=== PATIENT | female | born 1950 | race Two or more races ===

== ENCOUNTER 2023-06-08 12:23 | Emergency (ER) | payer OTHER, BC ==
[~2023-06-08] VITALS: Ht 157.5 cm; Wt 77.1 kg
[2023-06-08] MEDS ORDERED: TOPROL XL50 M1 (13:33)
[2023-06-08] MEDS ORDERED: AZOR 5-20 MG T1 EACH (13:33)
[2023-06-08] MEDS ORDERED: ZESTRIL20 MG (13:33)
[2023-06-08 16:48] LABS: HEMATOCRIT 42.5 % (36.0-45.00); HEMOGLOBIN 14.4 g/dL (12.0-15.00); MEAN CELL VOLUME 93.3 fL (80.00-100.00); MEAN CORPUSCULAR HEMOGLOBIN 31.7 pg (27.00-32.0); PLATELET COUNT 206 K/uL (150-450); RED BLOOD COUNT 4.56 M/uL (4.00-6.00); RED CELL DISTRIBUTION WIDTH 12.9 % (11.5-14.5)
[2023-06-08 16:49] LABS: URINE APPEARANCE Clear; URINE BILIRRUBIN Negative (NEGATIVE); URINE BLOOD Trace; URINE COLOR Yellow; URINE GLUCOSE Negative (NEGATIVE); URINE LEUKOCYTE Negative; URINE NITRATE Negative; URINE PROTEIN Negative (NEGATIVE); URINE UROBILINOGEN 0.2 E.U./dl
[2023-06-08 16:53] LABS: URINE BACTERIA 171.3 uL (0.0-1933); URINE EPITHELIAL CELLS 7.7 uL (0.0-38.8); URINE WBC 5.3 uL (0.0-23.2)
[2023-06-08 17:19] LABS: ALBUMIN 4.1 gm/dL (3.4-5.0); BILIRUBIN TOTAL 1.82 mg/dL (0.3-1.2); CALCIUM 9.4 mg/dL (8.5-10.1); CREATININE SERUM 0.79 mg/dL (0.55-1.02); GFR 71.14; GLOBULINA 3.7 G/DL (2.4-3.5); POTASSIUM 3.97 mEq/L (3.5-5.1); TOTAL PROTEIN 7.8 gm/dL (6.4-8.2)
== END 2023-06-08 20:40 | disposition home or self-care (01) ==
LOC: ER 12:23
PROVIDERS: General Practice
DX: N13.2 Hydronephrosis with renal and ureteral calculous obstruction (principal); I10 Essential (primary) hypertension
CPT/HCPCS: 36415; 74176; 96365; 99284; J2405; J3490